=== PATIENT | female | born 1990 | race American Indian/Alaskan Native ===

== ENCOUNTER 2016-10-19 19:05 | Emergency (ER) | payer BC ==
[2016-10-19 19:05] VITALS: BMI 30.7
[2016-10-19 19:14] VITALS: TEMP 98.6
--- NOTE | 2016-10-19 19:49 | ED PDOC ---
Arrival/HPI - General Historian: Patient - History of Present Illness Time/Duration: < week Symptom Onset: Sudden Symptom Course: Unchanged Quality: Aching, Cramping, Burning Severity Level: 7 Activities at Onset: Rest <Serge Meza - Last Filed: 10/19/16 22:03> <Arnulfo Castro - Last Filed: 10/19/16 22:28> - General Chief Complaint: Breast Problem Time Seen by Provider: 10/19/16 19:10 - History of Present Illness Narrative History of Present Illness (Text): 10/19/16 19:41 26 F with PMHx of fibromyalgia, hashimotos, migraines, and right breast chocolate cyst presenting to [facility] with complaints of left breast/nipple tenderness and associated chest discomfort described as an intermittent cramping sensation. Pt reports that for the past 3 days pt has been experiencing left breast tenderness with pronounced nipple tenderness and "burning" sensation rated at an 7/10 and radiates across her chest and down both arms as an intermittent cramping sensation. Pt also noted nausea and dizziness at the onset of symptoms, however she no longer is experiencing this. Pt also noted nipple discharge of clear liquid for the past 3 days. Pt admits to sob on exertion, chest discomfort with a cramping sensation. Pt denied fever , chills, palpitations, abdominal pains, n/v/d/c or urinary symptoms. Pt was seen and examined with nurse, Shanna Garcia as a medical coding technician. PMHx: as above PSHx: Denied SHx: Denied tobacco abuse, (+) etoh, denied illicit drug use, LMP: 10/03/16, uses OCP but misses doses FamHx: Grandfather - lymphoma Meds: Review SEP Allergies: Peanuts PMD: Dr. Rasmussen Melter Supervisor [employer]: Dr. Melendez Cook Relief: Dr. Hilary Smith retention specialist: Dr. Rodriguez (Serge Meza) Past Medical History - Infectious Disease Hx of Infectious Diseases: None - Tetanus Immunization Tetanus Immunization: Unknown - Cardiac Hx Heart Murmur: Yes - Pulmonary Hx Asthma: Yes - Neurological Hx Migraine: Yes Other/Comment: FIBROMYALGIA - HEENT Hx HEENT Disorder: No - Renal Hx Renal Disorder: No - Endocrine/Metabolic Hx Hyperthyroidism: Yes (hashimotos) - Hematological/Oncological Hx Blood Disorders: No - Integumentary Hx Dermatological Disorder: No - Musculoskeletal/Rheumatological Hx Musculoskeletal Disorders: No - Gastrointestinal Hx Gastrointestinal Disorders: No - Genitourinary/Gynecological Hx Genitourinary Disorders: No - Psychiatric Hx Depression: No Hx Emotional Abuse: No Hx Physical Abuse: No Hx Substance Use: No - Past Surgical History Past Surgical History: No Previous - Anesthesia Hx Anesthesia: No Hx Anesthesia Reactions: No Hx Malignant Hyperthermia: No - Suicidal Assessment Feels Threatened In Home Enviroment: No <Serge Meza - Last Filed: 10/19/16 22:03> Family/Social History Family/Social History: Other (lymphoma) Smoking Status: Never Smoked Hx Alcohol Use: Yes Hx Substance Use: No Hx Substance Use Treatment: No <Serge Meza - Last Filed: 10/19/16 22:03> Allergies/Home Meds <Serge Meza - Last Filed: 10/19/16 22:03> <Arnulfo Castro - Last Filed: 10/19/16 22:28> Allergies/Adverse Reactions: Allergies chocolate flavor Allergy (Verified 05/24/16 17:11) RASH old bay seasooning Allergy (Uncoded 05/24/16 17:11) RASH peanuts Allergy (Uncoded 05/24/16 17:11) RASH tomato Allergy (Uncoded 05/24/16 17:11) RASH Home Medications: Home Meds Medication Instructions Recorded Confirmed Topiramate [Topamax] 25 mg PO Q12 05/24/16 05/24/16 Review of Systems - Review of Systems Constitutional: absent: Fatigue, Fevers, Night Sweats Eyes: absent: Vision Changes, Photophobia ENT: absent: Hearing Changes, Tinnitus, Sore Throat, Rhinorrhea Respiratory: SOB. absent: Cough, Sputum Cardiovascular: Chest Pain. absent: Palpitations, Edema, Calf Pain Gastrointestinal: absent: Abdominal Pain, Constipation, Diarrhea, Nausea, Vomiting Genitourinary Female: absent: Dysuria, Hematuria Musculoskeletal: Arthralgias Skin: absent: Rash Neurological: absent: Headache, Dizziness, Focal Weakness <Serge Meza - Last Filed: 10/19/16 22:03> Physical Exam Temperature: Afebrile Blood Pressure: Normal Pulse: Regular Respiratory Rate: Normal Appearance: Positive for: Well-Appearing, Non-Toxic, Comfortable Pain Distress: Mild Mental Status: Positive for: Alert and Oriented X 3 - Systems Exam Head: Present: Atraumatic, Normocephalic Pupils: Present: PERRL Extroacular Muscles: Present: EOMI Conjunctiva: Present: Normal Mouth: Present: Moist Mucous Membranes Neck: Present: Normal Range of Motion. No: JVD Respiratory/Chest: Present: Clear to Auscultation, Good Air Exchange. No: Respiratory Distress, Accessory Muscle Use Cardiovascular: Present: Regular Rate and Rhythm, Murmurs, Normal S1, S2 Abdomen: Present: Normal Bowel Sounds. No: Tenderness, Distention, Peritoneal Signs Breast/Axillary: Present: Symmetrical, Tender to Palpation. No: Axillary Lymphad, Discoloration, Erythema, Fluctuance, Masses, Nipple Discharge, Swelling Upper Extremity: Present: Normal Inspection. No: Cyanosis, Edema Lower Extremity: No: Edema, CALF TENDERNESS, Swelling Neurological: Present: GCS=15, CN II-XII Intact, Speech Normal Skin: Present: Warm, Dry, Normal Color. No: Rashes Psychiatric: Present: Alert, Oriented x 3, Normal Insight, Normal Concentration <Serge Meza - Last Filed: 10/19/16 22:03> Vital Signs Temp Pulse Resp BP Pulse Ox 10/19/16 19:10 98.6 F 90 20 116/76 100 Medical Decision Making Re-evaluation Time: 21:30 Reassessment Condition: Improving,but remains with symptoms - Lab Interpretations Interpretation: All labs normal - RAD Interpretation Commercial Sheet Metal Foreman: ED Physician - EKG Interpretation Interpreted by ED Physician: Yes Comparison: Com.w/previous EKG <Serge Meza - Last Filed: 10/19/16 22:03> - Lab Interpretations I have reviewed the lab results: Yes <Arnulfo Castro - Last Filed: 10/19/16 22:28> ED Course and Treatment: 10/19/16 19:52 26 F with PMHx of fibromyalgia, hashimotos, migraines, and right breast chocolate cyst presenting to [facility] with complaints of left breast/nipple tenderness and associated chest discomfort described as an intermittent cramping sensation. - CBC - BMP - UA test - CXR - EKG - D-dimer - Pepcid - Reassess and dispo 10/19/16 21:58 Pt was reassessed and symptoms have improved, but still remain to a mild extent. Labwork returned wnl, EKG: NSR with no st changes, CXR: No active disease. D- Dimer returned negative. Pt is stable to be discharged to be followed up outpt with PMD, WORKERS' COMPENSATION COMMISSIONER, and Cook Relief. Pt has been prescribed dexilant for GERD. (Serge Meza) Patient seen and examined with resident. Came up with treatment and disposition plan with resident. The patient is a 26 year old female who comes to the emergency department for evaluation of left chest and breast/nipple pain with discharge. Additional HPI detials as noted by the resident. On physical examination the patient has tenderness with palpation to the left breast along with mild clear discharge when apply pressure to the nipple but no swelling or masses are palpable. Female medical coding technician (Prince) was present during physical examination. Will obtain Chest X-ray and lab work to rule out cardiac cause. 10/19/16 22:19 CXR is negative and EKG is unremarkable. Labs including d-dimer are unremarkable. Patient reports mild improvement in pain of chest with famotidine and toradol. Regarding discharge, there are no findings suggestive of mastitis or palpable masses. Patient does have a history of thyroiditis and has had hair falling out and takes OCPs inconsistently - patient has been told she needs to f/u pmd, endocrinology, and her hardware technician. No cardiopulmonary or emergent findings - ok for d/c. (Arnulfo Castro) - Lab Interpretations Lab Results: 10/19/16 20:07 10/19/16 20:07 Lab Results 10/19/16 20:07: WBC 8.1, RBC 4.03, Hgb 13.0, Hct 36.8, MCV 91.3, MCH 32.3, MCHC 35.3, RDW 13.1, Plt Count 224, MPV 11.0, Gran % 60.0, Lymph % (Auto) 30.8, [place] % (Auto) 7.3 H, Eos % (Auto) 1.7, Baso % (Auto) 0.2, Gran # 4.83, Lymph # 2.5, [place] # 0.6, Eos # 0.1, Baso # 0.02, PT 10.9, INR 1.01, APTT 26.4, D-Dimer, Quantitative 0.28, Sodium 136, Potassium 3.8, Chloride 100, Carbon Dioxide 29, Anion Gap 11, BUN 10, Creatinine 0.8, Est GFR ( Amer) > 60, Est GFR (Non- Af Amer) > 60, Random Glucose 94, Calcium 9.4 - RAD Interpretation Narrative RAD Interpretations (Text): 10/19/16 21:30 No active disease (Derrick,Manit) Radiology Orders: 10/19/16 19:37 CHEST TWO VIEWS (PA/LAT) [RAD] Stat - EKG Interpretation EKG Interpretation (Text): 10/19/16 19:55 NSR @ [address] changes (Derrick,Manit) - Medication Orders Current Medication Orders: Discontinued Medications Famotidine (Pepcid) 20 mg IVP STAT STA Stop: 10/19/16 19:45 Last Admin: 10/19/16 21:34 Dose: 20 MG IVP Administration Document 10/19/16 21:34 JORGE (Rec: 10/19/16 21:34 JORGE [id number]) Charges for Administration # of IVP Administrations 1 Ketorolac Tromethamine (Toradol) 30 mg IVP STAT STA Stop: 10/19/16 20:58 Last Admin: 10/19/16 21:34 Dose: 30 MG IVP Administration Document 10/19/16 21:34 JORGE (Rec: 10/19/16 21:34 JORGE [id number]) Charges for Administration # of IVP Administrations 1 Ketorolac Tromethamine (Toradol) 30 mg IVP STAT STA Stop: 10/19/16 21:29 Last Admin: 10/19/16 21:35 Dose: <Derrick,Manit - Last Filed: 10/19/16 22:03> - PA / CALCINER OPERATOR HELPER / Resident Statement / has reviewed & agrees with the documentation as recorded. MD/ has examined the patient and agrees with the treatment plan. - Scribe Statement The provider has reviewed the documentation as recorded by the Scribe <Arnulfo Castro - Last Filed: 10/19/16 22:28> - Scribe Statement Joseline Buenrostro Provider Scribe Attestation: All medical record entries made by the Scribe were at my direction and personally dictated by me. I have reviewed the chart and agree that the record accurately reflects my personal performance of the history, physical exam, medical decision making, and the department course for this patient. I have also personally directed, reviewed, and agree with the discharge instructions and disposition. (Arnulfo Castro) Disposition/Present on Arrival - Present on Arrival Any Indicators Present on Arrival: No History of DVT/PE: No History of Uncontrolled Diabetes: No Urinary Catheter: No History of Decub. Ulcer: No History Surgical Site Infection Following: None - Disposition Have Diagnosis and Disposition been Completed?: Yes Disposition Time: 21:30 Patient Plan: Discharge <Serge Meza - Last Filed: 10/19/16 22:03> <Arnulfo Castro - Last Filed: 10/19/16 22:28> - Disposition Diagnosis: Breast pain, left Disposition: HOME/ ROUTINE Patient Problems: Current Active Problems Problem Status Diagnosed Breast pain, left Acute Condition: STABLE Discharge Instructions (ExitCare): Chest Pain (ED) Additional Instructions: 1. Pt is to FU with WORKERS' COMPENSATION COMMISSIONER laura 2. Pt is to FU with PMD laura 3. Pt is to FU with Cook Relief laura 4. Pt welcomed to return to [facility] ED if develop any acute symptoms Prescriptions: Dexlansoprazole [Dexilant] 30 mg PO DAILY PRN #12 bp PRN Reason: Indigestion / Heartburn Referrals: Josue Rasmussen MD [Primary Care Provider] - Follow up with primary
[2016-10-19 20:13] LABS: ADD MANUAL DIFF? NO
[2016-10-19 20:27] LABS: BASO # 0.02 K/mm3 (0.0-2.0); BASO % 0.2 % (0.0-3.0); EOS # 0.1 (0.0-0.7); EOS % 1.7 % (1.5-5.0); GRAN # 4.83 (1.4-6.5); HEMATOCRIT 36.8 % (36.0-48.0); LYMPH # 2.5 (1.2-3.4); LYMPH % 30.8 % (22.0-35.0); MEAN CELL VOLUME 91.3 fL (80.0-105.0); MEAN CORPUSCULAR HEMOGLOBIN 32.3 pg (25.0-35.0); MEAN CORPUSCULAR HGB CONC 35.3 g/dl (31.0-37.0); MONO # 0.6 (0.1-0.6); MONO % 7.3 % (1.0-6.0); PLATELET COUNT 224 10^3/uL (120.0-450.0); RED CELL DISTRIBUTION WIDTH 13.1 % (11.5-14.5); WHITE BLOOD COUNT 8.1 10^3/ul (4.5-11.0)
[2016-10-19 20:31] LABS: BLOOD UREA NITROGEN 10 mg/dL (7-21); CALCIUM 9.4 mg/dL (8.4-10.5); CARBON DIOXIDE 29 mmol/L (21-33); CHLORIDE 100 mmol/L (98-107); GFR AFRICAN-AMERICAN > 60; GLUCOSE,RANDOM 94 mg/dL (70-110); POTASSIUM 3.8 mmol/L (3.6-5.0); SODIUM 136 mmol/L (132-148)
[2016-10-19 20:41] LABS: INR 1.01 (0.93-1.08); PARTIAL THROMBOPLASTIN TIME 26.4 Seconds (23.7-30.8)
[2016-10-19 20:42] LABS: D DIMER 0.28 mg/L FEU (0-0.50)
[2016-10-19 22:31] VITALS: BP 122/74; PULSE 84; RESP 18; O2SAT 99
--- NOTE | 2016-10-20 09:27 | RAD ---
HISTORY: chest pain COMPARISON: 02/17/2016. TECHNIQUE: Chest PA and lateral FINDINGS: LUNGS: No active pulmonary disease. PLEURA: No significant pleural effusion identified. No pneumothorax apparent. CARDIOVASCULAR: Normal. OSSEOUS STRUCTURES: No significant abnormalities. VISUALIZED UPPER ABDOMEN: Normal. OTHER FINDINGS: None. IMPRESSION: No active disease. No significant interval change compared to the prior examination(s).
--- NOTE | 2016-10-20 18:06 | CARD ---
APPROVED REPORT EKG Measurement Heart [id number] <Conclusion> Normal sinus rhythm Normal ECG
== END 2016-10-19 22:31 | disposition home or self-care (01) ==
LOC: ED 19:05
DX: N64.4 Mastodynia (principal)
CPT/HCPCS: 71020; 80048; 85025; 85378; 85610; 85730; 93005; 96374; 96375; 99283; J1885

== ENCOUNTER 2017-01-06 19:22 | Emergency (ER) | payer BC ==
[2017-01-06 19:22] VITALS: BMI 30.7
[2017-01-06 19:36] VITALS: RESP 18; TEMP 99
--- NOTE | 2017-01-06 20:00 | ED PDOC ---
Arrival/HPI - General Chief Complaint: Chest Pain Time Seen by Provider: 01/06/17 19:29 - History of Present Illness Narrative History of Present Illness (Text): 01/06/17 19:55 26 y/o F w/ PMHx of Jae's and fibromyalgia presents to the ED c/o L axillary pain. Pt states pain started ~1mon ago; however, pain is getting worse. Pain radiates around to the pt's back. Pain is constant w/ varying increases in intensity. Pt admits to assoc arm swelling w/ occasional numbness and tingling. Pt has some chest wall tenderness above L breast. Denies F/C, CP on exertion, no dyspnea on exertion, diaphoresis, abd pain, weakness. (Kassandra Lamb) Past Medical History - Provider Review Nursing Documentation Reviewed: Yes - Infectious Disease Hx of Infectious Diseases: None - Tetanus Immunization Tetanus Immunization: Unknown - Cardiac Hx Heart Murmur: Yes - Pulmonary Hx Asthma: Yes - Neurological Hx Migraine: Yes Other/Comment: FIBROMYALGIA - HEENT Hx HEENT Disorder: No - Renal Hx Renal Disorder: No - Endocrine/Metabolic Hx Hyperthyroidism: Yes (hashimotos) - Hematological/Oncological Hx Blood Disorders: No - Integumentary Hx Dermatological Disorder: No - Musculoskeletal/Rheumatological Hx Musculoskeletal Disorders: No - Gastrointestinal Hx Gastrointestinal Disorders: No - Genitourinary/Gynecological Hx Genitourinary Disorders: No - Psychiatric Hx Depression: No Hx Emotional Abuse: No Hx Physical Abuse: No Hx Substance Use: No - Past Surgical History Past Surgical History: No Previous - Anesthesia Hx Anesthesia: No Hx Anesthesia Reactions: No Hx Malignant Hyperthermia: No - Suicidal Assessment Feels Threatened In Home Enviroment: No Family/Social History - Physician Review Nursing Documentation Reviewed: Yes Family/Social History: Neoplasm/Cancer Smoking Status: Never Smoked Hx Alcohol Use: Yes Hx Substance Use: No Hx Substance Use Treatment: No Allergies/Home Meds Allergies/Adverse Reactions: Allergies chocolate flavor Allergy (Verified 05/24/16 17:11) RASH old bay seasooning Allergy (Uncoded 05/24/16 17:11) RASH peanuts Allergy (Uncoded 05/24/16 17:11) RASH tomato Allergy (Uncoded 05/24/16 17:11) RASH Home Medications: Home Meds Medication Instructions Recorded Confirmed Topiramate [Topamax] 25 mg PO Q12 05/24/16 05/24/16 Review of Systems - Physician Review All systems were reviewed & negative as marked: Yes - Review of Systems Constitutional: absent: Fevers Cardiovascular: absent: Palpitations Physical Exam Vital Signs Reviewed: Yes Temperature: Afebrile Blood Pressure: Normal Pulse: Regular Respiratory Rate: Normal Appearance: Positive for: Well-Appearing Pain Distress: None Mental Status: Positive for: Alert and Oriented X 3 - Systems Exam Head: Present: Atraumatic, Normocephalic Pupils: Present: PERRL Extroacular Muscles: Present: EOMI Conjunctiva: Present: Normal Mouth: Present: Moist Mucous Membranes Respiratory/Chest: Present: Clear to Auscultation, Good Air Exchange. No: Respiratory Distress, Accessory Muscle Use Cardiovascular: Present: Regular Rate and Rhythm, Normal S1, S2. No: Murmurs Abdomen: No: Tenderness, Distention Breast/Axillary: Present: Axillary Lymphad (L), Swelling (L axilla), Tender to Palpation (axillary lymph node). No: Fluctuance, Nipple Discharge Upper Extremity: Present: Normal Inspection. No: Cyanosis, Edema Lower Extremity: Present: Normal Inspection. No: Edema Neurological: Present: GCS=15, Speech Normal Skin: Present: Warm, Dry, Normal Color Lymphatic: No: Cervical Adenopathy Psychiatric: Present: Alert, Oriented x 3, Normal Insight, Normal Concentration Medical Decision Making - EKG Interpretation Interpreted by ED Physician: Yes (NSR, rate 85, no axis rotation/deviation.) Type: 12 lead EKG ED Course and Treatment: 01/06/17 20:02 26 y/o F w/ L axillary pain and breast tenderness - PERC criteria negative for PE - Tender, mobile L axillary mass. no induration or fluctuance palpated. no erythema. - CP pain reproducible w/ palpation of L axillary nodule - Motrin 600mg prn Pain 01/06/17 20:18 Discussed possibility of cancer vs benign causes of lympadenopathy. Discussed need to follow up w/ PMD for further workup and possible surgical referral. (Kassandra Lamb) Patient seen and examined with resident Came up with treatment and disposition plan with resident (Johnny Kidd) - Medication Orders Current Medication Orders: Discontinued Medications Ibuprofen (Motrin Tab) 600 mg PO STAT STA Stop: 01/06/17 19:54 Last Admin: 01/06/17 20:00 Dose: 600 mg Disposition/Present on Arrival - Present on Arrival Any Indicators Present on Arrival: No History of DVT/PE: No History of Uncontrolled Diabetes: No Urinary Catheter: No History of Decub. Ulcer: No History Surgical Site Infection Following: None - Disposition Have Diagnosis and Disposition been Completed?: Yes Disposition Time: 20:10 Patient Plan: Discharge - Disposition Diagnosis: Lymphadenopathy Disposition: HOME/ ROUTINE Condition: STABLE Discharge Instructions (ExitCare): Lymphadenopathy (ED) Additional Instructions: See your primary physician within 1 week. Take all home medication as prescribed. Apply warm compresses to the affected area as needed. Take OTC Motrin/Tylenol as needed for pain Return to the ED if any new or concerning symptoms.
[2017-01-06 20:26] VITALS: BP 115/84; PULSE 93; O2SAT 100
--- NOTE | 2017-01-07 14:07 | CARD ---
APPROVED REPORT EKG Measurement Heart [id number] <Conclusion> Normal sinus rhythm Possible Left atrial enlargement Borderline ECG
== END 2017-01-06 20:26 | disposition home or self-care (01) ==
LOC: ED 19:22
DX: R59.1 Generalized enlarged lymph nodes (principal)

== ENCOUNTER 2017-07-17 14:30 | Observation (INO) | payer BC ==
[2017-07-17 14:32] VITALS: BMI 30.7
[2017-07-17 15:01] VITALS: RESP 18
--- NOTE | 2017-07-17 15:05 | ED PDOC ---
Arrival/HPI - General Chief Complaint: Chest Pain Time Seen by Provider: 07/17/17 15:00 Historian: Patient - History of Present Illness Narrative History of Present Illness (Text): 07/17/17 15:07 pt p/w ~ 2 days onset of chest congestion/nasal congestion, "feeling like coming down with something;" + sob/? wheezing; pt had asked her PCP 2 days ago for refill of her inhaler and has been using it since without relief; pt states + mild coughing/non-productive, no fever/chills/sweats, noted left chest tightness radiating up to her left axilla and into her left mid back; pt states symptoms are mild, pt states + palpitations intermittently; pt states sob worsens with exertion; pt states no abd pain, no n/v, no numbness/tingling, no urinary/bowel changes, no fall/trauma/sick contact, ? travel to [place] recently ; pt denied loc, no other complaints; pt is here for further eval. Time/Duration: < week (~ 2 days) Symptom Onset: Sudden Symptom Course: Worsening Quality: Tightness Severity Level: Mild Context: Exertion Past Medical History - Provider Review Nursing Documentation Reviewed: Yes - Travel History Have you recently traveled outside [place] w/in the past 3 mons?: No - Past History Past History: No Previous - Infectious Disease Hx of Infectious Diseases: None - Tetanus Immunization Tetanus Immunization: Unknown - Cardiac Hx Cardiac Disorders: Yes Hx Heart Murmur: Yes - Pulmonary Hx Respiratory Disorders: Yes Hx Asthma: Yes - Neurological Hx Neurological Disorder: Yes Hx Migraine: Yes Other/Comment: FIBROMYALGIA - HEENT Hx HEENT Disorder: No - Renal Hx Renal Disorder: No - Endocrine/Metabolic Hx Endocrine Disorders: Yes Hx Hyperthyroidism: Yes (hashimotos) - Hematological/Oncological Hx Blood Disorders: No - Integumentary Hx Dermatological Disorder: No - Musculoskeletal/Rheumatological Hx Musculoskeletal Disorders: No - Gastrointestinal Hx Gastrointestinal Disorders: Yes Other/Comment: HEPATITIS - Genitourinary/Gynecological Hx Genitourinary Disorders: No - Psychiatric Hx Psychophysiologic Disorder: Yes Hx Anxiety: Yes Hx Substance Use: No - Past Surgical History Past Surgical History: No Previous - Anesthesia Hx Anesthesia: No - Suicidal Assessment Feels Threatened In Home Enviroment: No Family/Social History - Physician Review Nursing Documentation Reviewed: Yes Family/Social History: No Known Family HX (no early NV with family (< 50yr); no early sudden in family hx) Smoking Status: Never Smoked Hx Alcohol Use: Yes Hx Substance Use: No Hx Substance Use Treatment: No Allergies/Home Meds Allergies/Adverse Reactions: Allergies chocolate flavor Allergy (Verified 07/17/17 14:52) RASH old [place] seas[place]ing Allergy (Uncoded 07/17/17 14:52) RASH peanuts Allergy (Uncoded 07/17/17 14:52) RASH tomato Allergy (Uncoded 07/17/17 14:52) RASH Home Medications: Home Meds Medication Instructions Recorded Confirmed Prednisone [Prednisone] 20 mg PO DAILY 07/17/17 07/17/17 Review of Systems - Review of Systems Constitutional: Normal Eyes: Normal ENT: Normal Respiratory: SOB, Cough, Wheezing. absent: Sputum Cardiovascular: Chest Pain, Palpitations. absent: Edema Gastrointestinal: Normal Genitourinary Female: Normal Musculoskeletal: Normal Skin: Normal Neurological: Normal Endocrine: Normal Hemo/Lymphatic: Normal Psychiatric: Normal Physical Exam Vital Signs Reviewed: Yes (WNL) Vital Signs Temp Pulse Resp BP Pulse Ox 07/17/17 17:49 98.3 F 107 H 18 116/66 97 07/17/17 17:00 69 18 125/64 100 07/17/17 15:00 98.2 F 74 18 128/71 100 07/17/17 14:54 18 Temperature: Afebrile Blood Pressure: Normal Pulse: Regular Respiratory Rate: Normal Appearance: Positive for: Well-Appearing, Non-Toxic, Other (uncomfortable, NAD, alert/awake, GCS = 15, oriented x 3, resting in bed) Pain Distress: None Mental Status: Positive for: Alert and Oriented X 3 - Systems Exam Head: Present: Atraumatic, Normocephalic Pupils: Present: PERRL, Other (no nystagmus, no photophobia, sclera anicteric) Extroacular Muscles: Present: EOMI Conjunctiva: Present: Normal Ears: Present: Normal Mouth: Present: Moist Mucous Membranes, Other (intact dentitions, no drooling/ stridor, no exudate/lesions) Pharnyx: Present: Normal Neck: Present: Normal Range of Motion, Trachea Midline. No: MIDLINE TENDERNESS Respiratory/Chest: Present: Clear to Auscultation, Good Air Exchange, Other ( slight decr breath sounds noted to right base, no wheezing/rales/rhonchi noted, no tachypenia noted, no accessory muscle use noted). No: Respiratory Distress, Accessory Muscle Use Cardiovascular: Present: Regular Rate and Rhythm, Normal S1, S2. No: Murmurs Abdomen: Present: Normal Bowel Sounds, Other (well nourished female, no focal tenderness, no masses/rebound/guarding/rigidity, no calvin's sign, no mcburney' s point tenderness). No: Tenderness, Distention, Peritoneal Signs Back: Present: Normal Inspection Upper Extremity: Present: Normal Inspection, Normal ROM, NORMAL PULSES, Neurovascularly Intact, Capillary Refill < 2s. No: Cyanosis, Edema Lower Extremity: Present: Normal Inspection, NORMAL PULSES, Normal ROM, Neurovascularly Intact, Capillary Refill < 2 s. No: Edema Neurological: Present: GCS=15, CN II-XII Intact, Speech Normal Skin: Present: Warm, Dry, Normal Color. No: Rashes Psychiatric: Present: Alert, Oriented x 3, Normal Insight, Normal Concentration Medical Decision Making ED Course and Treatment: 07/17/17 15:03 Impression: sob/atypical chest tightness; viral syndrome i have consider all the differential diagnosis regarding pt's chief medical complaints/clinical findings, including but are not limited to: asthmatic exacerbation, sob, unlikely acs, unlikely PE, viral syndrome, r/o pna A/P: sob/? wheezing, atypical chest pain/tightness - labs - iv - xray - d-dimer - observe - supportive care 07/17/17 19:00 pt felt initial improvement but with exertion now with persistent chest pain and continued SOB no desaturation is noted pt is uncomfortable for release for home pt is made aware of her medical results pending CTA chest (pe eval) agrees with admission/observation paging workers compensation manager PCP/Maggie 07/17/17 19:[address] Serrano, PCP workers compensation manager, made aware, agrees with admission/ observation placement i endorsed the patient to overnight ED attending Dr Smith, will f/u on CTA and pt can be treated accordingly if + findings Re-evaluation Time: 18:01 Reassessment Condition: Improving,but remains with symptoms - Lab Interpretations Lab Results: 07/17/17 15:59 07/17/17 15:59 Lab Results 07/17/17 15:59: TSH 3rd Generation 0.74 07/17/17 15:59: Sodium 143, Potassium 3.4 L, Chloride 104, Carbon Dioxide 28, Anion Gap 14, BUN 10, Creatinine 0.7, Est GFR ( Amer) > 60, Est GFR (Non- Af Amer) > 60, Random Glucose 71, Calcium 9.6, Magnesium 1.9, Total Bilirubin 0.5, AST 23, ALT 33, Alkaline Phosphatase 50, Lactate Dehydrogenase 469, Total Creatine Kinase 72, Troponin I < 0.01, Total Protein 7.8, Albumin 4.2, Globulin 3.5, Albumin/Globulin Ratio 1.2 07/17/17 15:59: D-Dimer, Quantitative 141 07/17/17 15:59: WBC 12.1 H D, RBC 4.18, Hgb 13.6, Hct 40.5, MCV 96.9, MCH 32.5, MCHC 33.6, RDW 13.7, Plt Count 188, MPV 10.6, Gran % 77.0 H, Lymph % (Auto) 11.8 L, [place] % (Auto) 10.4 H, Eos % (Auto) 0.6 L, Baso % (Auto) 0.2, Gran # 9.30 H, Lymph # 1.4, [place] # 1.3 H, Eos # 0.1, Baso # 0.02 07/17/17 15:10: Urine Color Yellow, Urine Appearance Clear, Urine pH 7.0, Ur Specific [place] 1.020, Urine Protein Trace H, Urine Glucose (UA) Negative, Urine Ketones Trace H, Urine Blood Trace-intact H, Urine Nitrate Negative, Urine Bilirubin Negative, Urine Urobilinogen 1.0 H, Ur Leukocyte Esterase Negative, Urine RBC 5 - 10, Urine WBC 1 - 3, Ur Epithelial Cells 4 - 5, Urine HCG, Qual Negative WNL I have reviewed the lab results: Yes Interpretation: All labs normal - RAD Interpretation Radiology Orders: 07/17/17 15:00 CHEST TWO VIEWS (PA/LAT) [RAD] Stat 07/17/17 18:04 ANGIO CHEST PE PROTOCOL [CT] Stat TECHNIQUE: Chest PA and lateral FINDINGS: LUNGS: No active pulmonary disease. PLEURA: No significant pleural effusion identified. No pneumothorax apparent. CARDIOVASCULAR: Normal. OSSEOUS STRUCTURES: No significant abnormalities. VISUALIZED UPPER ABDOMEN: Normal. OTHER FINDINGS: None. IMPRESSION: No active disease. Area Captain: Radiologist - EKG Interpretation EKG Interpretation (Text): 07/17/17 15:04 NSR at 95 bpm, normal axis, no ectopy, no st-t changes, NORMAL EKG; unchanged compare with old ekg 12/201607/17/17 15:06 Interpreted by ED Physician: Yes Type: 12 lead EKG Comparison: Similar to previous EKG - Medication Orders Current Medication Orders: Albuterol/Ipratropium (Duoneb 3 Mg/0.5 Mg (3 Ml) Ud) 3 ml IH Q4H PRN PRN Reason: Wheezing Discontinued Medications Albuterol/Ipratropium (Duoneb 3 Mg/0.5 Mg (3 Ml) Ud) 3 ml IH Q15M PÉREZ Stop: 07/17/17 15:46 Last Admin: 07/17/17 15:40 Dose: 3 ml Ketorolac Tromethamine (Toradol) 30 mg IVP STAT STA Stop: 07/17/17 18:06 Last Admin: 07/17/17 18:22 Dose: 30 mg MAR Pain Assessment Document 07/17/17 18:22 SF (Rec: 07/17/17 18:23 [facility] [id number] Pain Reassessment Is this a pain reassessment? Yes Sleep Is patient sleeping during reassessment? No Presence of Pain Presence of Pain Yes Pain Scale Used Pain Scale Used Numeric Location Pain Location Body Site Chest Description Description Intermittent IVP Administration Document 07/17/17 18:22 SF (Rec: 07/17/17 18:23 [facility] [id number][place] Charges for Administration # of IVP Administrations 1 Methylprednisolone (Solu-Medrol) 125 mg IVP STAT STA Stop: 07/17/17 15:03 Last Admin: 07/17/17 15:14 Dose: 125 mg IVP Administration Document 07/17/17 15:14 SF (Rec: 07/17/17 15:14 [facility] [id number][place] Charges for Administration # of IVP Administrations 1 - Transfer of Care Patient signed out to Dr:: raciel Pending Radiology Studies:: CTA chest, to r/o PE Disposition/Present on Arrival - Present on Arrival Any Indicators Present on Arrival: No History of DVT/PE: No History of Uncontrolled Diabetes: No Urinary Catheter: No History of Decub. Ulcer: No History Surgical Site Infection Following: None - Disposition Have Diagnosis and Disposition been Completed?: Yes Diagnosis: Chest pain with low risk for cardiac etiology, Shortness of breath Disposition: HOSPITALIZED Disposition Time: 19:03 Patient Plan: Admission, Observation Patient Problems: Current Active Problems Problem Status Onset Chest pain with low risk for cardiac etiology Acute Shortness of breath Acute Condition: STABLE Discharge Instructions (ExitCare): Chest Pain (ED) Forms: [email or web address] ([place])
[2017-07-17] MEDS: Albuterol-Ipratrop 3 mg / 0.5 (3 ml) UD IH SCH ×3 (15:14→15:40)
[2017-07-17 15:46] LABS: URINE APPEARANCE CLEAR (CLEAR); URINE BILIRUBIN NEGATIVE (NEGATIVE); URINE BLOOD TRACE-INTACT (NEGATIVE); URINE COLOR YELLOW (YELLOW); URINE GLUCOSE (UA) NEGATIVE (NEGATIVE); URINE LEUKOCYTE ESTERASE NEGATIVE Leu/uL (NEGATIVE); URINE NITRATE NEGATIVE (NEGATIVE); URINE PROTEIN TRACE mg/dL (<30 mg/dL)
[2017-07-17 15:50] LABS: HCG,QUALITATIVE URINE NEGATIVE (NEGATIVE)
[2017-07-17 16:09] LABS: BASO # 0.02 K/mm3 (0.0-2.0); BASO % 0.2 % (0.0-3.0); EOS # 0.1 (0.0-0.7); EOS % 0.6 % (1.5-5.0); GRAN # 9.3 (1.4-6.5); HEMOGLOBIN 13.6 g/dL (12.0-16.0); LYMPH # 1.4 (1.2-3.4); LYMPH % 11.8 % (22.0-35.0); MEAN CELL VOLUME 96.9 fl (80.0-105.0); MEAN CORPUSCULAR HEMOGLOBIN 32.5 pg (25.0-35.0); MEAN CORPUSCULAR HGB CONC 33.6 g/dl (31.0-37.0); MEAN PLATELET VOLUME 10.6 fl (7.0-11.0); MONO # 1.3 (0.1-0.6); MONO % 10.4 % (1.0-6.0); RBC 4.18 10^6/uL (3.5-6.1); RED CELL DISTRIBUTION WIDTH 13.7 % (11.5-14.5); WHITE BLOOD COUNT 12.1 10^3/ul (4.5-11.0)
[2017-07-17 16:17] LABS: ALB/GLOB RATIO 1.2 (1.1-1.8); ALBUMIN 4.2 g/dL (3.0-4.8); ALT/SGPT 33 U/L (7-56); AST/SGOT 23 U/L (14-36); BLOOD UREA NITROGEN 10 mg/dL (7-21); CALCIUM 9.6 mg/dL (8.4-10.5); GFR AFRICAN-AMERICAN > 60; GFR NON-AFRICAN AMERICAN > 60; MAGNESIUM 1.9 mg/dL (1.7-2.2)
--- NOTE | 2017-07-17 16:21 | RAD ---
HISTORY: Chest pain/SOB. COMPARISON: Comparison chest 10/19/2016. TECHNIQUE: Chest PA and lateral FINDINGS: LUNGS: No active pulmonary disease. PLEURA: No significant pleural effusion identified. No pneumothorax apparent. CARDIOVASCULAR: Normal. OSSEOUS STRUCTURES: No significant abnormalities. VISUALIZED UPPER ABDOMEN: Normal. OTHER FINDINGS: None. IMPRESSION: No active disease.
[2017-07-17 16:28] LABS: TROPONIN I < 0.01 ng/mL
[2017-07-17] MEDS ORDERED: Albuterol-Ipratrop 3 mg / 0.5 (3 ml) UD IH PRN (19:09)
[2017-07-17] MEDS ORDERED: Iodixanol 320 MG/ML 100 ML BOTTLE IV ONE (20:25)
--- NOTE | 2017-07-17 21:26 | CT ---
EXAM: CT Chest With Intravenous Contrast EXAM DATE/TIME: 07/17/2017 6:04 PM CLINICAL HISTORY: 27 years old, female; Pain; Chest pain; Additional info: Chest pain, HX of autoimmune hepatitis TECHNIQUE: Axial computed tomography images of the chest with intravenous contrast during the arterial phase of enhancement. All CT scans at this facility use one or more dose reduction techniques, viz.: automated exposure control; ma/kV adjustment per patient size (including targeted exams where dose is matched to indication; i.e. head); or iterative reconstruction technique. Coronal and sagittal reformatted images were created and reviewed. CONTRAST: 96 mL of VISI 320 administered intravenously. COMPARISON: There are no prior studies for comparison. FINDINGS: Artifacts: There is streak artifact from a necklace. Streak artifact from dental fillings degrades image quality. Heart, Aorta and Pulmonary arteries: Heart size is normal.There is trace fluid in pericardial recesses.There is no aneurysm or dissection. There is perfusion of the 3 arch vessels. Main pulmonary arteries normal in caliber 2.8 mm in diameter. Right and left pulmonary arteries are mildly dilated, 2.5 cm on the left, 2.6 m on the right. There are no central pulmonary emboli. Bolus timing limits evaluation of peripheral vessels Lungs and Pleural spaces: Trachea and main bronchi are patent.There is no pneumothorax. There is minimal dependent atelectasis. There is no focal consolidation. There are no effusions. Mediastinum: The esophagus is unremarkable. There are no pathologically enlarged mediastinal or hilar nodes. Thyroid: Thyroid is not optimally demonstrated. Gland appears enlarged with possible left nodule. Bones/joints: There are no acute osseous abnormalities. Soft tissues: unremarkable Upper abdomen: There are no acute abnormalities in the visualized portion of the abdomen.Stomach is distended with a large amount of ingested material. IMPRESSION: No aneurysm, dissection or central pulmonary embolus, and bolus timing limits evaluation of peripheral pulmonary arteries; mildly dilated pulmonary arteries; limited evaluation of the thyroid Additional findings as described above.
[2017-07-17 22:38] LABS: HDL CHOLESTEROL 67 mg/dL (29-60)
[2017-07-17 22:50] LABS: LDL CHOLESTEROL 99 mg/dL (0-129)
[2017-07-17 22:51] LABS: TROPONIN I < 0.01 ng/mL
[2017-07-17] MEDS: Levalbuterol 1.25 MG/3 ML Inhal Soln UD IH SCH (23:29)
[2017-07-18] MEDS ORDERED: Pantoprazole 40 mg EC Tab PO SCH (06:30)
[2017-07-18 06:41] LABS: ALB/GLOB RATIO 1.2 (1.1-1.8); ALT/SGPT 29 U/L (7-56); AST/SGOT 23 U/L (14-36); BLOOD UREA NITROGEN 11 mg/dL (7-21); CALCIUM 9.8 mg/dL (8.4-10.5); GFR AFRICAN-AMERICAN > 60; GFR NON-AFRICAN AMERICAN > 60; MAGNESIUM 1.9 mg/dL (1.7-2.2)
[2017-07-18 07:20] LABS: FREE T4 0.75 ng/dL (0.78-2.19)
[2017-07-18] MEDS: Levalbuterol 1.25 MG/3 ML Inhal Soln UD IH SCH ×3 (07:44→19:56)
[2017-07-18] MEDS ORDERED: Metoprolol Succinate 25 mg XL Tab PO SCH (08:00)
[2017-07-18 08:21] VITALS: O2SAT 98
--- NOTE | 2017-07-18 09:54 | CARD ---
APPROVED REPORT EKG Measurement Heart [id number] <Conclusion> Normal sinus rhythm Normal ECG
[2017-07-18 11:01] LABS: TROPONIN I < 0.01 ng/mL
[2017-07-18] MEDS: Naproxen 550 mg Tab PO SCH ×2 (11:59→18:46)
--- NOTE | 2017-07-18 15:07 | HP ---
HISTORY OF PRESENT ILLNESS: The patient is a 27-year-old. She stated day before yesterday, when she was at work she started to have shortness of breath. She does have a history of asthma. She usually uses Ventolin, but it was not working. Her shortness of breath got worse yesterday, so she came to the Emergency Room complaining of some chest discomfort that is more so on pressing to the mid chest area. Denies any palpitation. No history of fever. No chills. No cough or congestion. No hemoptysis. No hematemesis. PAST MEDICAL HISTORY: Significant for recently diagnosed autoimmune hepatitis for that she is on prednisone 20 mg daily and she does have asthma, but has been stable with Ventolin. ALLERGIES: SHE IS ALLERGIC TO CHOCOLATE [place], [place], PEANUTS, AND TOMATOES. MEDICATIONS AT HOME: She is on prednisone 20 mg daily, Dexilant 30 mg daily, and Ventolin. SOCIAL HISTORY: She is single. Has boyfriend. Denies smoking or drinking. Socially drinks only. REVIEW OF SYSTEMS: Significant for chest pain more so on pressing. PHYSICAL EXAMINATION: GENERAL: She is awake, alert, oriented, and communicative. VITAL SIGNS: She is afebrile, pulse 86, respirations 18, and blood pressure 111/68. LUNGS: Bilateral good airflow. No rhonchi or crackles. HEART: S1 and S2 audible. ABDOMEN: Soft and nontender. No rebound. No guarding. NEUROLOGIC: The patient is awake, alert, oriented, and communicative. MUSCULOSKELETAL: She has palpable discomfort in the costochondral area and the mid chest area. EXTREMITIES: Bilateral legs no edema. LABORATORY DATA AND IMAGING STUDIES: WBC is 12.1, hemoglobin 13.6, hematocrit 40.5, and platelets of 188. D-dimer 141. Chemistry, sodium 141, potassium 4.3, chloride 105, CO2 23, BUN 11, creatinine 0.6, and blood sugar of 124. LDH is 701. troponins are negative. Urinalysis is unremarkable. She had CT of the chest done that shows no aneurysm, no dissection, embolus or any infiltrate. EKG is normal sinus rhythm, normal EKG. X-ray of the chest was unremarkable. ASSESSMENT: 1. Atypical chest pain. 2. Shortness of breath, probably secondary to asthma versus anxiety disorder. 3. History of Jae's with normal thyroid function test. 4. History of autoimmune hepatitis. PLAN: The patient will be getting echocardiogram. We will start her on NSAID. She is on nebulizer treatment. Once the echocardiogram is done, I will give her dose of Naprosyn, if the patient seems to be doing well, she will be discharged later on today. Mushtaq Serrano MD
--- NOTE | 2017-07-18 15:36 | CON ---
DATE: 07/18/2017 CONSULT SERVICE: Cardiology. REASON FOR CONSULTATION: Shortness of breath and chest pain. BRIEF CLINICAL HISTORY: This is a 27-year-old female with past medical history of Jae's thyroiditis and autoimmune hepatitis, who came in with one-week history of shortness of breath progressively worsening and sharp pain in the chest. Sometimes the pain goes to the back. So the patient came to the emergency room. Initial CAT scan was done to rule out PE, that was unofficially read as negative. Cardiac consult was called. The patient denies any chest pain, shortness of breath or any palpitation prior to this one-week episode. Denies any dyspnea on exertion. was sitting at bedside and states that the patient recently came from [place]. Denies any chest pain, shortness of breath or any palpitation. PAST MEDICAL HISTORY: As mentioned, history of Jae's thyroiditis, history of autoimmune thyroiditis, history of gastroesophageal reflux, history of COPD, and asthma. Also history of fibromyalgia SOCIAL HISTORY: Denies any smoking. Denies any history of alcohol abuse. Denies any history of substance abuse. FAMILY HISTORY: Nonsignificant except grandfather had some questionable history of heart condition, details unknown. ALLERGIES: ALLERGY TO CHOCOLATE. ALLERGY TO PEANUTS AND TOMATO. CURRENT MEDICATIONS: At home, she was taking 20 mg daily prednisone for autoimmune hepatitis, taking and Naprosyn for fibromyalgia. REVIEW OF SYSTEMS: As per HPI. PHYSICAL EXAMINATION: VITAL SIGNS: As follow, temperature afebrile, heart rate 86, and blood pressure 111/68. HEENT: PERRLA. Extraocular muscles are intact. NECK: Supple. No carotid bruits or thyromegaly. CHEST: Clear to auscultation. HEART: S1 and S2, regular. ABDOMEN: Soft. EXTREMITIES: Clubbing and cyanosis negative. LABORATORY DATA: Blood workup as follows; WBC 12.1, hemoglobin 13.6, hematocrit 40.5, and platelet count 188. Chemistry shows sodium 141, potassium 4.3, chloride 105, carbon dioxide 23, anion gap of 17, BUN 11, and creatinine 0.6. IMPRESSION: Atypical chest pain, so far no evidence of myocardial infarction. Two sets of CT scans are negative for pulmonary embolism. History of fibromyalgia, history of autoimmune hepatitis, history of Jae's thyroiditis, rule out cardiomyopathy. EKG is essentially normal. Chest x-ray is essentially normal. No cardiomegaly. Mild congestion possibly noted. RECOMMENDATIONS: We will get echo to assess LV function. Add on morning troponin and if the troponins are negative and the echo is normal, the patient can be discharged for having a stress test as an outpatient. We will follow with you. We will add lipid profile and TSH. Thank you Dr. Serrano for providing us the opportunity in taking care of the patient, Lila Gorman. Further recommendations will be as per hospital course. We will follow with you. Flakita Coffey MD
[2017-07-18] MEDS ORDERED: Oxycodone/Acetaminophen 5/325 mg Tab PO PRN (16:13)
[2017-07-18] MEDS ORDERED: Oxycodone/Acetaminophen 5/325 mg Tab PO ONE (16:15)
[2017-07-18 18:13] VITALS: BP 99/56; PULSE 107; TEMP 99.1
[2017-07-18] MEDS ORDERED: oxyCODONE 10 mg Immediate Release Tab PO ONE (18:42)
--- NOTE | 2017-07-18 19:18 | CARD ---
APPROVED REPORT EXAM: Two-dimensional and M-mode echocardiogram with Doppler and color Doppler. INDICATION Dyspnea Chest Pain 2D DIMENSIONS Left Atrium (2D)3.5 (1.6-4.0cm)IVSd1.0 (0.7-1.1cm) LVDd4.2 (3.9-5.9cm)PWd1.1 (0.7-1.1cm) LVDs2.4 (2.5-4.0cm)FS (%) 43.2 % LVEF (%)74.8 (>50%) M-Mode DIMENSIONS Aortic Root2.40 (2.2-3.7cm)Aortic Cusp Exc.1.30 (1.5-2.0cm) Aortic Valve AoV Peak Afifuwfw959.0cm/Kristie Peak GR.23mmHg Mitral Valve E/A ratio0.0 TDI E/Lateral E'0.0E/Medial E'0.0 Tricuspid Valve TR Peak [id number] [id number] Peak Gr.22mmHg [id number] LEFT VENTRICLE The left ventricle is normal size. There is normal left ventricular wall thickness. The left ventricular function is normal.EF-65-70% There is normal LV segmental wall motion. The left ventricular diastolic function is normal. No left ventricle thrombus noted on this study. There is no ventricular septal defect visualized. There is no left ventricular aneurysm. There is no mass noted in the left ventricle. RIGHT VENTRICLE The right ventricle is normal size. There is normal right ventricular wall thickness. The right ventricular systolic function is normal. ATRIA The left atrium size is normal. The right atrium size is normal. The interatrial septum is intact with no evidence for an atrial septal defect. AORTIC VALVE The aortic valve is normal in structure. No aortic regurgitation is present. There is no aortic valvular stenosis. There is no aortic valvular vegetation. MITRAL VALVE The mitral valve is thickened but opens well. Mitral regurgitation is mild to moderate. There is no mitral valve stenosis. There is no evidence of mitral valve prolapse. TRICUSPID VALVE The tricuspid valve leaflets are thickened , but open well. There is mild tricuspid regurgitation.RVSP-32 mmof Hg. There is no tricuspid valve stenosis. There is no tricuspid valve prolapse or vegetation. PULMONIC VALVE The pulmonary valve is normal in structure. There is no pulmonic valvular regurgitation. There is no pulmonic valvular stenosis. GREAT VESSELS The aortic root is normal in size. The ascending aorta is normal in size. The pulmonary artery is normal. PERICARDIAL EFFUSION There is no pleural effusion. There is no pericardial effusion. <Conclusion> Normal chamber Size. EF-65-70% Mitral regurgitation is mild to moderate. There is mild tricuspid regurgitation.RVSP-32 mmof Hg. No Vegetation or thrombus noted
== END 2017-07-18 21:50 | disposition home or self-care (01) ==
LOC: ED 14:30 → ERH 19:08 → 3RNO 20:53
PROVIDERS: ADMIT Internal Medicine; ATTEND Internal Medicine
DX: R07.89 Other chest pain (principal); B34.9 Viral infection, unspecified; E06.3 Autoimmune thyroiditis; J44.9 Chronic obstructive pulmonary disease, unspecified; K21.9 Gastro-esophageal reflux disease without esophagitis; K75.4 Autoimmune hepatitis; M79.7 Fibromyalgia; Z91.010 Allergy to peanuts; Z91.018 Allergy to other foods; R40.2412 Glasgow coma scale score 13-15, at arrival to emergency department
CPT/HCPCS: 36415; 71046; 71275; 80053; 80061; 81001; 82550; 83615; 83735; 84439; 84443; 84484; 84703; 85025; 85378; 93005; 93306; 94640; 94760; 96374; 96375; 99285; G0378; J1885; J2930; Q9967